=== PATIENT | male | born 1960 | race Caucasian/White ===

== ENCOUNTER 2016-05-20 03:15 | Emergency (ER) | payer OTHER ==
[~2016-05-20] VITALS: Ht 175.3 cm; Wt 86.2 kg
[2016-05-20 03:19] VITALS: BP 201/125
--- NOTE | 2016-05-20 03:30 | NUR ---
PATIENT PRESENTS TO ED WITH CHEST SINCE 9PM . PT DENIES N/V/D; SKIN IS PINK/WARM/DRY; AAOX4 WITH EVEN AND STEADY GAIT; LUNGS CLEAR BL; HR EVEN AND REGULAR; PT DENIES ANY FEVER, , SOB, OR COUGH AT THIS TIME; PATIENT STATES PAIN OF 8/10 AT THIS TIME; VSS; PATIENT POSITIONED FOR COMFORT; HOB ELEVATED; BEDRAILS UP X2; BED DOWN. ER MD MADE AWARE OF PT STATUS.
--- NOTE | 2016-05-20 03:30 | NUR ---
Patient ambulated to bed 06.
--- NOTE | 2016-05-20 03:32 | NUR ---
Matthias tavares in [facility] - 05/20/16 at [address] Bauer evaluating patient at bedside.
[2016-05-20] MEDS ORDERED: KETOROLAC 30 MG/ML VIAL IVP ONE (03:50)
[2016-05-20] MEDS ORDERED: ASPIRIN 81 MG TAB.CHEW PO ONE (03:50)
[2016-05-20] MEDS ORDERED: NACL 0.9% 1,000 ML IV ONE (03:50)
[2016-05-20] MEDS ORDERED: hydrALAZINE 20 MG/ML VIAL IVP ONE (03:50)
--- NOTE | 2016-05-20 03:50 | NUR ---
Dr. Bauer evaluating patient at bedside.
--- NOTE | 2016-05-20 04:05 | NUR ---
PIV AND MEDS STARTED. PT TOLERATED WELL.
--- NOTE | 2016-05-20 04:12 | NUR ---
DR ESPAÑA NOTIFIED OF BP AFTER HYDRALAZINE GIVEN.
--- NOTE | 2016-05-20 04:53 | NUR ---
PT SLEEPING, MEDICATION WITH GOOD EFFECT.
[2016-05-20] MEDS ORDERED: cloNIDine 0.1 MG TAB PO ONE (05:00)
--- NOTE | 2016-05-20 05:23 | NUR ---
PT STATES PAIN IS 0/10, DR ESPAÑA MADE AWARE.
[2016-05-20 05:36] VITALS: BP 139/91
== END 2016-05-20 05:37 | disposition home or self-care (01) ==
LOC: MED 03:15
DX: R07.89 Other chest pain (principal); R11.2 Nausea with vomiting, unspecified; I10 Essential (primary) hypertension; F17.210 Nicotine dependence, cigarettes, uncomplicated
CPT/HCPCS: 36415; 71010; 80053; 81002; 84484; 85025; 85610; 85730; 93005; 96361; 96374; 96375; 99285; J0360; J1885; J7030; Q0092